=== PATIENT | female | born 1945 | race Caucasian/White ===

== ENCOUNTER 2018-09-12 14:21 | Emergency (ER) | payer MEDICARE, OTHER ==
[2018-09-12 14:26] VITALS: BP 148/81; PULSE 79; RESP 16; TEMP 98; O2SAT 97
--- NOTE | 2018-09-12 14:48 | ED PDOC ---
HPI: CCC, URI, Sore Throat Time Seen by Provider: 09/12/18 14:37 Chief Complaint (Nursing): Cough, Cold, Congestion History Per: Patient Onset/Duration Of Symptoms: Days (3) Current Symptoms Are (Timing): Still Present Location Of Pain: Headache Associated Symptoms: Cough. denies: Fever, Sputum, Neck Pain Severity: Moderate Additional Complaint(s): Nonproductive cough assoc with headache x 3 days. Denies fever or SOB. Denies focal weakness or dizziness. Past Medical History Vital Signs: Last Vital Signs Temp 98.0 F 09/12/18 14:24 Pulse 79 09/12/18 14:24 Resp 16 09/12/18 14:24 BP 148/81 09/12/18 14:24 Pulse Ox 97 09/12/18 14:24 - Medical History PMH: Arthritis, Asthma, Hypercholesterolemia, TIA (On Plavix) - Surgical History Surgical History: Cholecystectomy - Family History Family History: States: Unknown Family Hx - Immunization History Hx Tetanus Toxoid Vaccination: No Hx Influenza Vaccination: No Hx Pneumococcal Vaccination: No - Home Medications Home Medications: Ambulatory Orders Medication Instructions Recorded Aciflex 20 mg PO DAILY 07/05/16 Crestor 5 mg PO DAILY 07/05/16 Gabapentin 100 mg PO BID 07/05/16 Plavix 75 mg PO DAILY 07/05/16 Brimonidine Tartrate/Timolol 5 ml OP BID 03/01/17 [Combigan 0.2%-0.5% Eye Drops] Ca/D3/Mag/Zinc/Sandra/Alex/Mgbor 1 each PO DAILY 03/01/17 [Caltrate 600+D3+Min Chew Tab] Candesartan Cilexetil 4 mg PO DAILY 03/01/17 Erythromycin 0.5% [Erythromycin 3.5 gm OP Q4 #1 tube 03/01/17 0.5% Oint] Rabeprazole Sodium [Aciphex] 20 mg PO DAILY 03/01/17 Salmeterol Xinafoate/Fluticaso 1 aer IH DAILY 03/01/17 [Advair Hfa 45/21] Travoprost [Travatan Z 5 ml] 5 ml OP DAILY 03/01/17 Azithromycin [Zithromax] 250 mg PO DAILY #6 tab 09/12/18 Benzonatate [Tessalon Perle] 100 mg PO Q8 #10 capsule 09/12/18 - Allergies Allergies/Adverse Reactions: Allergies Allergy/AdvReac Type Severity Reaction Status Date / Time mineral oil Allergy RASH Verified 09/12/18 14:24 moxifloxacin Allergy RASH Verified 09/12/18 14:24 Penicillins Allergy RASH Verified 09/12/18 14:24 Sulfa (Sulfonamide Allergy RASH Verified 09/12/18 14:24 Antibiotics) Review of Systems ROS Statement: Except As Marked, All Systems Reviewed And Found Negative Respiratory: Positive for: Cough Neurological: Positive for: Headache Physical Exam - Reviewed Nursing Documentation Reviewed: Yes Vital Signs Reviewed: Yes - Physical Exam Appears: Positive for: Non-toxic, No Acute Distress Head Exam: Positive for: ATRAUMATIC, NORMAL INSPECTION, NORMOCEPHALIC Skin: Positive for: Normal Color, Warm, DRY Eye Exam: Positive for: EOMI, Normal appearance, PERRL ENT: Positive for: Normal ENT Inspection Neck: Positive for: Normal, Painless ROM Cardiovascular/Chest: Positive for: Regular Rate, Rhythm Respiratory: Positive for: Rhonchi. Negative for: Wheezing, Respiratory Distress Gastrointestinal/Abdominal: Positive for: Normal Exam, Soft Back: Positive for: Normal Inspection Extremity: Positive for: Normal ROM Neurologic/Psych: Positive for: Alert, Oriented. Negative for: Motor/Sensory Deficits - ECG O2 Sat by Pulse Oximetry: 97 Medical Decision Making Medical Decision Making: Declines CXR and CT head Disposition - Clinical Impression Clinical Impression: Bronchitis - Patient ED Disposition Is Patient to be Admitted: No Counseled Patient/Family Regarding: Studies Performed, Diagnosis, Need For Followup, Rx Given - Disposition Disposition: Routine/Home Disposition Time: 16:05 Condition: FAIR Prescriptions: Azithromycin [Zithromax] 250 mg PO DAILY #6 tab Benzonatate [Tessalon Perle] 100 mg PO Q8 #10 capsule Instructions: Acute Bronchitis Forms: [facility] ([facility])
== END 2018-09-12 16:35 | disposition home or self-care (01) ==
LOC: H.ER 14:21
DX: J40 Bronchitis, not specified as acute or chronic (principal); J45.909 Unspecified asthma, uncomplicated; Z86.73 Personal history of transient ischemic attack (TIA), and cerebral infarction without residual deficits; Z88.0 Allergy status to penicillin